=== PATIENT | male | born 1980 | race Caucasian/White ===

== ENCOUNTER 2018-11-20 19:50 | Emergency (ER) | payer OTHER ==
[~2018-11-20] VITALS: Ht 185.4 cm; Wt 110.0 kg
[2018-11-20 19:59] VITALS: BP 112/70
[2018-11-20] MEDS ORDERED: PHENYLEPHRINE 10 MG/ML IC ONE ×2 (20:30→21:00)
[2018-11-20] MEDS ORDERED: PHENYLEPHRINE 10 MG/ML ONE (20:48)
== END 2018-11-20 21:25 | disposition home or self-care (01) ==
LOC: ED 20:41
DX: N48.89 Other specified disorders of penis (principal); F17.210 Nicotine dependence, cigarettes, uncomplicated
CPT/HCPCS: 99281

== ENCOUNTER 2018-12-08 14:20 | Emergency (ER) | payer OTHER ==
[~2018-12-08] VITALS: Ht 182.9 cm; Wt 109.4 kg
[2018-12-08] MEDS ORDERED: ONDANSETRON 2MG/ML, 2ML ONE (14:52)
[2018-12-08] MEDS ORDERED: MORPHINE SULFATE 4 MG/ML, 1ML ONE (14:52)
[2018-12-08] MEDS ORDERED: ONDANSETRON 2MG/ML, 2ML IVPush ONE (15:00)
[2018-12-08] MEDS ORDERED: MORPHINE SULFATE 4 MG/ML, 1ML IVPush PRN (15:00)
[2018-12-08] MEDS ORDERED: LIDOCAINE-MPF 1%, 5ML ONE (15:03)
[2018-12-08] MEDS ORDERED: SODIUM CHLORIDE 0.9% IC ONE (15:30)
[2018-12-08] MEDS ORDERED: PHENYLEPHRINE IC ONE (15:30)
[2018-12-08] MEDS ORDERED: SODIUM CHLORIDE 0.9% IV ONE (15:30)
[2018-12-08] MEDS ORDERED: PHENYLEPHRINE IV ONE (15:30)
--- NOTE | 2018-12-08 15:32 | NUR ---
IN ROOM FOR PROCEDURE. CONSENT SIGNED PRIOR. NIBP AND O2 MONITORING IN PLACE.
--- NOTE | 2018-12-08 15:35 | NUR ---
PROVIDER ADMIN OF LIDOCAINE AND NEOSINEPHRINE.
--- NOTE | 2018-12-08 15:38 | NUR ---
DIRECTOR OF KIDS IN PLACE
[2018-12-08 16:58] VITALS: BP 106/60
--- NOTE | 2018-12-08 16:59 | NUR ---
BREAK RN: PT STATES THAT HE WILL CALL FAMILY TO COME PICK HIM UP FROM ED, DEPARTING IN NAD AT THIS TIME, AMBULATING W/ STEADY GATE.
== END 2018-12-08 17:01 | disposition home or self-care (01) ==
LOC: ED 15:52
DX: N48.30 Priapism, unspecified (principal); F17.200 Nicotine dependence, unspecified, uncomplicated
CPT/HCPCS: 96374; 96375; 99291; J2270; J2370; J2405